=== PATIENT | female | born 1955 | race Caucasian/White ===

== ENCOUNTER 2017-08-30 17:49 | Observation (INO) | payer OTHER ==
[~2017-08-30] VITALS: Ht 160 cm; Wt 80.5 kg
[~2017-08-30 17:49] MED LIST: ALPR.25 PO; CARV12.52 PO; CENTCHW3 PO; CYCL1PAK PO; DICL75 PO; ESTR42.5V PV; METF500 PO; NEXI40CA PO
[2017-08-30 17:50] VITALS: BP 177/81; PULSE 87; RESP 16; TEMP 98.2; O2SAT 97
[2017-08-30 20:48] LABS: AUTOMATED NEUTROPHIL # 3.9 TH/MM3 (1.8-7.7); BASOPHIL # 0.1 TH/MM3 (0-0.2); BASOPHIL % 0.7 % (0.0-2.0); EOSINOPHIL # 0.2 TH/MM3 (0-0.4); EOSINOPHIL % 2.7 % (0.0-4.0); HEMATOCRIT 39.8 % (35.0-46.0); LYMPHOCYTE # 3.3 TH/MM3 (1.0-4.8); MEAN CELL VOLUME 76.4 FL (80.0-100.0); MEAN CORPUSCULAR HGB CONC 32.7 % (32.0-36.0); MEAN PLATELET VOLUME 8.8 FL (7.0-11.0); MONO % 5.5 % (0.0-8.0); MONOCYTE # 0.4 TH/MM3 (0-0.9); NEUT % 49.1 % (16.0-70.0); PLATELET COUNT 255 TH/MM3 (150-450); RED BLOOD COUNT 5.22 MIL/MM3 (4.00-5.30); RED CELL DISTRIBUTION WIDTH 14.9 % (11.6-17.2); WHITE BLOOD COUNT 7.9 TH/MM3 (4.0-11.0)
[2017-08-30 21:09] LABS: INTERNATIONAL NORMALIZED RATIO 0.9 RATIO; PROTHROMBIN TIME - PATIENT 9.6 SEC (9.8-11.6)
[2017-08-30 21:11] LABS: BICARBONATE 25.2 MEQ/L (21.0-32.0); BLOOD UREA NITROGEN 18 MG/DL (7-18); CALCIUM 9.3 MG/DL (8.5-10.1); CHLORIDE 107 MEQ/L (98-107); CREATININE 0.98 MG/DL (0.50-1.00); GLOMERULAR FILTRATION RATE 58 ML/MIN (>89); GLUCOSE,RANDOM 149 MG/DL (74-106); SODIUM (NA) 143 MEQ/L (136-145)
[2017-08-30 21:15] LABS: TROPONIN I LESS THAN 0.02 NG/ML (0.02-0.05)
[2017-08-30 22:32] VITALS: BP 167/76; PULSE 81; RESP 20; O2SAT 98
[2017-08-30] MEDS ORDERED: NEXI40CA PO (22:55)
[2017-08-30] MEDS ORDERED: CARV12.52 PO (22:55)
[2017-08-30] MEDS ORDERED: METF500T PO (22:55)
[2017-08-30] MEDS ORDERED: MOBI7.5T PO (22:55)
[2017-08-30] MEDS ORDERED: LISI2.5T3 PO (22:55)
[2017-08-30] MEDS ORDERED: SIMV20TA PO (22:55)
[2017-08-30] MEDS ORDERED: CYCL7.5T33 (22:55)
[2017-08-30] MEDS ORDERED: IOHEXOL 350 MG/ML 100 ML BTL (for EPS) OTHER ONE (22:58)
--- NOTE | 2017-08-30 22:58 | PD ---
HPI Chief Complaint: Chest Pain Time Seen by Provider: 22:33 Travel History International Travel<30 days: No Contact w/Intl Traveler<30days: No Traveled to known affect area: No History of Present Illness HPI Patient is a 61-year-old female presents emergency department for evaluation of exertional chest tightness radiating down her left arm associate with some nausea vomiting and diaphoresis over the past 2 months. She went to her primary care physician 2 days ago and was told to immediately go to the emergency department for additional workup. She was admitted to [facility] , the patient had an echocardiogram and EKG and was scheduled to have a stress test done today but she did not like the care she was receiving clarifying to me in the attitudes a provider she has had so she decided to leave AGAINST MEDICAL ADVICE she went back to her primary care physician today and was told that she had to go to the hospital immediately for further workup and so she came here. States the pain feels tight in the center of her chest worsens on exertion, intermittent, for the past 2 months. She is high blood pressure hyperlipidemia and diabetes, non-smoker, family history of mother having heart disease and coronary artery disease PFSH Past Medical History Arthritis: Yes Cardiovascular Problems: Yes High Cholesterol: Yes Chest Pain: Yes Diabetes: Yes Patient Takes Glucophage: Yes Gastrointestinal Disorders: Yes GERD: Yes Hypertension: Yes Tetanus Vaccination: Unknown Past Surgical History Gynecologic Surgery: Yes (hysterectomy, tubal ligation, ) Other Surgery: Yes (tumor removed from a finger) Social History Alcohol Use: Yes (occas) Tobacco Use: No Substance Use: No Allergies-Medications (Allergen,Severity, Reaction): Coded Allergies: amoxicillin (Unverified Allergy, Severe, Chest Pain, 08/30/17) clavulanic acid (Unverified Allergy, Severe, Chest Pain, 08/30/17) codeine (Unverified Allergy, Severe, Nausea/Vomiting, 08/30/17) solifenacin (Unverified Allergy, Severe, Itching, 08/30/17) Reported Meds & Prescriptions Reported Meds & Active Scripts Active Reported Flexeril (Cyclobenzaprine HCl) 7.5 Mg Tab 7.5 Mg TID Metformin (Metformin HCl) 500 Mg Tab 1,000 Mg PO BIDPC Simvastatin 20 Mg Tab 20 Mg PO DAILY Mobic (Meloxicam) 7.5 Mg Tab 7.5 Mg PO BID Nexium (Esomeprazole DR) 40 Mg Capdr 40 Mg PO DAILY Lisinopril 2.5 Mg Tab 2.5 Mg PO DAILY Carvedilol 12.5 Mg Tab 12.5 Mg PO BID Review of Systems Except as stated in HPI: all other systems reviewed are Neg Physical Exam Narrative GENERAL: Well-developed well-nourished, no obvious distress SKIN: Focused skin assessment warm/dry. HEAD: Atraumatic. Normocephalic. EYES: Pupils equal and round. No scleral icterus. No injection or drainage. ENT: No nasal bleeding or discharge. Mucous membranes pink and moist. NECK: Trachea midline. No JVD. CARDIOVASCULAR: Regular rate and rhythm. No murmur appreciated. 2+ bilateral equal pulses in all 4 extremities RESPIRATORY: No accessory muscle use. Clear to auscultation. Breath sounds equal bilaterally. GASTROINTESTINAL: Abdomen soft, non-tender, nondistended. Hepatic and splenic margins not palpable. MUSCULOSKELETAL: No obvious deformities. No clubbing. No cyanosis. No edema. NEUROLOGICAL: Awake and alert. No obvious cranial nerve deficits. Motor grossly within normal limits. Normal speech. PSYCHIATRIC: Appropriate mood and affect; insight and judgment normal. Data Data Last Documented VS Vital Signs Date Time Temp Pulse Resp B/P (MAP) Pulse Ox O2 Delivery O2 Flow Rate FiO2 08/30/17 22:32 81 20 167/76 (106) 98 Room Air 08/30/17 17:50 98.2 Orders Orders Electrocardiogram (08/30/17 18:00) Complete Blood Count With Diff (08/30/17 18:00) Basic Metabolic Panel (Bmp) (08/30/17 18:00) Ckmb (Isoenzyme) Profile (08/30/17 18:00) Troponin I (08/30/17 18:00) Prothrombin Time / Inr (Pt) (08/30/17 18:00) Act Partial Throm Time (Ptt) (08/30/17 18:00) Chest, Single Ap (08/30/17 ) Activity Bed Rest With Brp (08/30/17 22:53) Vital Signs (Adult) Q4H (08/30/17 22:53) Cardiac Rhythm .As Directed (08/30/17 22:53) Notify Dr: Other .PRN (08/30/17 22:53) Notify Dr. Parameters (08/30/17 22:53) Resp Oxygen Nasal Cannula (08/30/17 ) Diet Npo (08/31/17 Breakfast) Ckmb (Isoenzyme) Profile (08/30/17 22:53) Ckmb (Isoenzyme) Profile (08/31/17 01:53) Troponin I (08/30/17 22:53) Troponin I (08/31/17 01:53) Electrocardiogram (08/30/17 22:53) Electrocardiogram (08/31/17 01:53) ^ Obtain (08/30/17 22:53) Sodium Chlor 0.9% 1000 Ml Inj (Ns 1000 M (08/30/17 22:53) Sodium Chloride 0.9% Flush (Ns Flush) (08/30/17 23:00) Sodium Chloride 0.9% Flush (Ns Flush) (08/31/17 09:00) Nitroglycerin 2% Oint (Nitroglycerin 2% (08/31/17 00:00) Aspirin Chew (Aspirin Chew) (08/30/17 23:00) Party Plan Sales Host/Hostess / Telemetry [id number] (08/30/17 22:53) Admit Order (Ed Use Only) (08/30/17 ) Labs Laboratory Tests Test 08/30/17 20:10 White Blood Count 7.9 TH/MM3 Red Blood Count 5.22 MIL/MM3 Hemoglobin 13.0 GM/DL Hematocrit 39.8 % Mean Corpuscular Volume 76.4 FL Mean Corpuscular Hemoglobin 25.0 PG Mean Corpuscular Hemoglobin Concent 32.7 % Red Cell Distribution Width 14.9 % Platelet Count 255 TH/MM3 Mean Platelet Volume 8.8 FL Neutrophils (%) (Auto) 49.1 % Lymphocytes (%) (Auto) 42.0 % Monocytes (%) (Auto) 5.5 % Eosinophils (%) (Auto) 2.7 % Basophils (%) (Auto) 0.7 % Neutrophils # (Auto) 3.9 TH/MM3 Lymphocytes # (Auto) 3.3 TH/MM3 Monocytes # (Auto) 0.4 TH/MM3 Eosinophils # (Auto) 0.2 TH/MM3 Basophils # (Auto) 0.1 TH/MM3 CBC Comment DIFF FINAL Differential Comment Prothrombin Time 9.6 SEC Prothromb Time International Ratio 0.9 RATIO Activated Partial Thromboplast Time 25.3 SEC Blood Urea Nitrogen 18 MG/DL Creatinine 0.98 MG/DL Random Glucose 149 MG/DL Calcium Level 9.3 MG/DL Sodium Level 143 MEQ/L Potassium Level 3.9 MEQ/L Chloride Level 107 MEQ/L Carbon Dioxide Level 25.2 MEQ/L Anion Gap 11 MEQ/L Estimat Glomerular Filtration Rate 58 ML/MIN Total Creatine Kinase 65 U/L Troponin I LESS THAN 0.02 NG/ML MDM Medical Decision Making Medical Screen Exam Complete: Yes Emergency Medical Condition: Yes Differential Diagnosis ACS, NV, coronary artery disease, chest wall pain, Narrative Course Patient was room to the emergency department, vital signs stable, only minimal discomfort now, she certainly has concerning signs symptoms and I agree that she needs a stress test a minimum. Will be placed in the chest pain center and defer further testing to the chest pain center staff. Patient was given 162 of aspirin as she is already had 162 prior to arrival. Initial workup with EKG and troponin negative. Her paperwork from outside facility was placed on her chart. Diagnosis Primary Impression: Chest pain Admitting Information Admitting Physician Requests: Observation Condition: Stable Hair Pittman MD Aug 30, 2017 22:58
--- NOTE | 2017-08-30 22:58 | RADRPT ---
EXAM DATE/TIME: 08/30/2017 22:38 [facility] COMPARISON: No previous studies available for comparison. INDICATIONS : High blood pressure, weakness, and chest pain. MEDICAL HISTORY : Hypertension. Gastroesophageal reflux disease. Diverticulitis. Osteoarthritis, Asthma, Diabetes. SURGICAL HISTORY : , Hysterectomy, Lumpectomy, Tubal ligation, Right ankle surgery. ENCOUNTER: Initial ACUITY: 1 month PAIN SCORE: 3/10 LOCATION: Bilateral chest FINDINGS: A single view of the chest demonstrates the lungs to be symmetrically aerated without evidence of mas s, infiltrate or effusion. Heart size is borderline prominent but well compensated. Osseous structur es are intact. CONCLUSION: 1. Heart size is borderline prominent but well compensated. 2. Otherwise negative. Lungs are clear. Lobito Underwood MD on August 30, 2017 at 22:56 Board Certified Radiologist. This report was verified electronically.
[2017-08-30 23:00] VITALS: O2SAT 98
[2017-08-30] MEDS ORDERED: SODIUM CHLORIDE 0.9% FLUSH 10 ML FLUSH IV FLUSH PRN (23:00)
[2017-08-30] MEDS ORDERED: ASPIRIN 81 MG CHEW TAB PO ONE (23:00)
[2017-08-30] MEDS: SODIUM CHLOR 0.9% 1000 ML INJ 1,000 ML IV SCH (23:23)
[2017-08-30] MEDS: NITROGLYCERIN 2% OINT 1 GM PACKET TOP SCH (23:23)
[2017-08-31] VITALS (14 sets, daily range): BP systolic 110–179; BP diastolic 59–86; PULSE 75–89; RESP 17–20; TEMP 97.6–98.5; O2SAT 94–98
[2017-08-31 00:21] LABS: TROPONIN I LESS THAN 0.02 NG/ML (0.02-0.05)
[2017-08-31 03:01] LABS: TROPONIN I LESS THAN 0.02 NG/ML (0.02-0.05)
[2017-08-31] MEDS: NITROGLYCERIN 2% OINT 1 GM PACKET TOP SCH ×4 (05:12→23:34)
[2017-08-31] MEDS ORDERED: GLUCAGON 1 MG/ML VIAL OTHER PRN (08:00)
[2017-08-31] MEDS ORDERED: DEXTROSE 50% IN WATER 50 ML VIAL(D50) IV PUSH PRN (08:00)
[2017-08-31] MEDS: INSULIN ASPART SUPPLEMENTAL SCALE SQ SCH ×4 (08:00→21:00)
[2017-08-31] MEDS: SODIUM CHLORIDE 0.9% FLUSH 10 ML FLUSH IV FLUSH SCH ×2 (08:09→21:00)
[2017-08-31] MEDS: SODIUM CHLOR 0.9% 1000 ML INJ 1,000 ML IV SCH ×2 (08:09→18:58)
[2017-08-31] MEDS ORDERED: PILL SPLITTER OTHER PRN (10:30)
[2017-08-31] MEDS: cloNIDine HCL 0.1 MG TAB PO PRN (11:11)
[2017-08-31] MEDS: CARVEDILOL 12.5 MG TAB PO SCH ×3 (11:11→21:29)
[2017-08-31] MEDS: LISINOPRIL 5 MG TAB PO SCH (11:11)
[2017-08-31] MEDS: PRAVASTATIN SOD 40 MG TAB PO SCH (11:13)
[2017-08-31] MEDS: PANTOPRAZOLE SOD 40 MG DELAYED RELEASE TAB PO SCH (11:13)
--- NOTE | 2017-08-31 11:49 | EKG ---
Date Performed: 08/30/2017 Time Performed: 23:39:34 PTAGE: 61 years EKG: Sinus rhythm VOLTAGE CRITERIA FOR LVH INFERIOR MYOCARDIAL INFARCTION ABNORMAL ECG PREVIOUS TRACING : 08/30/2017 20.04 Since previous tracing, no significant change noted DOCTOR: Javier Arevalo Interpretating Date/Time 08/31/2017 11:49:20
--- NOTE | 2017-08-31 11:49 | EKG ---
Date Performed: 08/31/2017 Time Performed: 02:09:40 PTAGE: 61 years EKG: Sinus rhythm MINIMAL VOLTAGE CRITERIA FOR LVH, CONSIDER NORMAL VARIANT POSSIBLE INFERIOR MYOCARDIAL INFARCTION PUSHPA RDERLINE ECG PREVIOUS TRACING : 08/30/2017 20.04 Since previous tracing, no significant change noted DOCTOR: Javier Arevalo Interpretating Date/Time 08/31/2017 11:48:32
--- NOTE | 2017-08-31 11:55 | EKG ---
Date Performed: 08/30/2017 Time Performed: 20:04:25 PTAGE: 61 years EKG: Sinus rhythm VOLTAGE CRITERIA FOR LVH ABNORMAL ECG Inferior myocardial infarction NO PREVIOUS TRACING DOCTOR: Javier Arevalo Interpretating Date/Time 08/31/2017 11:53:51
--- NOTE | 2017-08-31 12:07 | HHI.HP ---
HPI Primary Care Physician Non-Staff Chief Complaint Chest pain History of Present Illness This is a 61-year-old female that presents to ED via private vehicle with complaint of 2-3 months of intermittent chest discomfort. She believes it occurs mostly with activity. Describes as a pressure. This happened a few times while at rest but mostly occurs with activity. She states she was to the gym and is almost a guarantee that it will occur while she is on the treadmill. It will last 15-30 minutes. Occasionally short of breath. No nausea or diaphoresis. 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 Denies history of CAD. States she had a nuclear ETT a couple years ago with a java security engineer [place]. Voices compliance with her medications for hypertension, hyperlipidemia, and diabetes. Quit smoking 10 years ago. Review of Systems General: Patient denies fevers, chills, and recent travel HEENT: Patient denies headache, sore throat, difficulty swallowing. Cardiovascular: Has the chest discomfort as mentioned above. Denies sensation of heart beating rapidly or irregularly. No syncope. Denies diaphoresis. Respiratory: Occasional shortness of breath. Denies inspirational chest discomfort. Denies coughing wheezing or hemoptysis. GI: Patient denies nausea, vomiting, diarrhea, abdominal pain, bloody stools. Musculoskeletal: Patient denies joint pain or edema. Denies calf pain or edema. Neurovascular: Patient denies numbness, tingling, weakness in extremities. Denies headache. Endocrine: Denies polyuria and polydipsia. Hematologic: Denies easy bruising. Skin: Denies rash or itching. Past Family Social History Allergies: Coded Allergies: amoxicillin (Unverified Allergy, Severe, Chest Pain, 08/30/17) clavulanic acid (Unverified Allergy, Severe, Chest Pain, 08/30/17) codeine (Unverified Allergy, Severe, Nausea/Vomiting, 08/30/17) solifenacin (Unverified Allergy, Severe, Itching, 08/30/17) Past Medical History Hypertension, hyperlipidemia, diabetes. Denies CAD. Past Surgical History , tubal ligation, and hysterectomy. Reported Medications Reported Meds & Active Scripts Active Reported Flexeril (Cyclobenzaprine HCl) 7.5 Mg Tab 7.5 Mg TID Metformin (Metformin HCl) 500 Mg Tab 1,000 Mg PO BIDPC Simvastatin 20 Mg Tab 20 Mg PO DAILY Mobic (Meloxicam) 7.5 Mg Tab 7.5 Mg PO BID Nexium (Esomeprazole DR) 40 Mg Capdr 40 Mg PO DAILY Lisinopril 2.5 Mg Tab 2.5 Mg PO DAILY Carvedilol 12.5 Mg Tab 12.5 Mg PO BID Active Ordered Medications Current Medications Medications (Trade) Dose Ordered Sig/Diane Route Start Time Stop Time Status Last Admin Sodium Chloride 1,000 ml @ 100 mls/hr Q10H IV 08/30/17 22:53 08/31/17 08:09 (NS Flush) 2 ml UNSCH PRN IV FLUSH 08/30/17 23:00 (NS Flush) 2 ml BID IV FLUSH 08/31/17 09:00 08/31/17 08:09 (Nitroglycerin 2% Oint) 0.5 inch Q6HR TOP 08/31/17 00:00 08/30/17 23:23 (D50w (Vial) Inj) 50 ml UNSCH PRN IV PUSH 08/31/17 08:00 (Glucagon Inj) 1 mg UNSCH PRN OTHER 08/31/17 08:00 (NovoLOG SUPPLEMENTAL SCALE) 1 ACHS SLIDING SCALE SQ 08/31/17 08:00 (Coreg) 12.5 mg BID PO 08/31/17 10:30 (Protonix) 40 mg DAILY PO 08/31/17 10:30 08/31/17 11:13 (Prinivil) 2.5 mg DAILY PO 08/31/17 10:30 08/31/17 11:11 (Pravachol) 40 mg DAILY PO 08/31/17 10:30 08/31/17 11:13 (Pill Splitter) 1 ea UNSCH PRN OTHER 08/31/17 10:30 (Catapres) 0.1 mg Q4H PRN PO 08/31/17 10:45 08/31/17 11:11 Family History Her father had CAD onset in his early 50s and at age 59 of a myocardial infarction. Social History Quit smoking 10 years ago but prior to that she smoked about 1 pack of cigarettes daily for 20 years. Rarely has alcohol. Denies illicit drug use. Physical Exam Vital Signs Vital Signs Date Time Temp Pulse Resp B/P (MAP) Pulse Ox O2 Delivery O2 Flow Rate FiO2 08/31/17 08:04 98.2 82 19 179/76 (110) 96 08/31/17 08:00 98.2 82 19 179/76 (110) 96 08/31/17 04:05 98.5 89 18 139/86 (103) 96 08/31/17 04:00 79 08/31/17 01:19 83 08/31/17 00:02 98.5 84 18 143/66 (91) 95 08/30/17 23:44 08/30/17 23:00 98 08/30/17 22:32 81 20 167/76 (106) 98 Room Air 08/30/17 22:32 83 20 97 Room Air 08/30/17 17:50 98.2 87 16 177/81 (113) 97 Physical Exam GENERAL: This is a well-nourished, well-developed patient, in no apparent distress. Patient speaks in clear complete sentences. Patient is pleasant. HEENT: Head is atraumatic and normocephalic. Neck is supple without lymphadenopathy and trachea is midline. No JVD or carotid bruits. CARDIOVASCULAR: Regular rate and rhythm without murmurs, gallops, or rubs. RESPIRATORY: Clear to auscultation. Breath sounds equal bilaterally. No wheezes , rales, or rhonchi. Chest wall is nontender. No use of accessory muscles. GASTROINTESTINAL: Abdomen is nontender, nondistended. Abdomen soft. No obvious pulsatile mass or bruit. No CVA tenderness. Strong femoral pulses bilaterally. Normal bowel sounds in all quadrants. MUSCULOSKELETAL: Patient is moving upper and lower extremities freely. No calf tenderness or edema, no Homans sign. Strong pulses in upper and lower extremities. NEUROLOGICAL: Patient is alert and oriented. Cranial nerves 2-12 are grossly intact. No focal deficits and speech is clear. SKIN: No rash and turgor is normal. Laboratory Laboratory Tests Test 08/30/17 20:10 08/30/17 23:10 08/31/17 02:10 White Blood Count 7.9 Red Blood Count 5.22 Hemoglobin 13.0 Hematocrit 39.8 Mean Corpuscular Volume 76.4 Mean Corpuscular Hemoglobin 25.0 Mean Corpuscular Hemoglobin Concent 32.7 Red Cell Distribution Width 14.9 Platelet Count 255 Mean Platelet Volume 8.8 Neutrophils (%) (Auto) 49.1 Lymphocytes (%) (Auto) 42.0 Monocytes (%) (Auto) 5.5 Eosinophils (%) (Auto) 2.7 Basophils (%) (Auto) 0.7 Neutrophils # (Auto) 3.9 Lymphocytes # (Auto) 3.3 Monocytes # (Auto) 0.4 Eosinophils # (Auto) 0.2 Basophils # (Auto) 0.1 CBC Comment DIFF FINAL Differential Comment Prothrombin Time 9.6 Prothromb Time International Ratio 0.9 Activated Partial Thromboplast Time 25.3 Blood Urea Nitrogen 18 Creatinine 0.98 Random Glucose 149 Calcium Level 9.3 Sodium Level 143 Potassium Level 3.9 Chloride Level 107 Carbon Dioxide Level 25.2 Anion Gap 11 Estimat Glomerular Filtration Rate 58 Total Creatine Kinase 65 63 54 Troponin I LESS THAN 0.02 LESS THAN 0.02 LESS THAN 0.02 Result Diagram: 08/30/17200908/30/172009 Imaging Last 48 hours Impressions Chest X-Ray 08/30/17 0000 Signed Impressions: Service Date/Time: Wednesday, August 30, 2017 22:38 - CONCLUSION: 1. Heart size is borderline prominent but well compensated. 2. Otherwise negative. Lungs are clear. Lobito Underwood MD Course EKGs are sinus rhythm with minor ST-T changes inferiorly. Q-wave in lead III. Caprini VTE Risk Assessment Caprini VTE Risk Assessment: No/Low Risk (score <= 1) Caprini Risk Assessment Model Point Value = 1 Point Value = 2 Point Value = 3 Point Value = 5 Age 41-60 Minor surgery BMI > 25 kg/m2 Swollen legs Varicose veins or History of unexplained or recurrent spontaneous Oral contraceptives or hormone replacement Sepsis (< 1 month) Serious lung disease, including pneumonia (< 1 month) Abnormal pulmonary function Acute myocardial infarction Congestive heart failure (< 1 month) History of inflammatory bowel disease Medical patient at bed rest Age 61-74 Arthroscopic surgery Major open surgery (> 45 min) Laparoscopic surgery (> 45 min) Malignancy Confined to bed (> 72 hours) Immobilizing plaster cast Central venous access Age >= 75 History of VTE Family history of VTE Factor V Leiden Prothrombin [id number] Lupus anticoagulant Anticardiolipin antibodies Elevated serum homocysteine Heparin-induced thrombocytopenia Other congenital or acquired thrombophilia Stroke (< 1 month) Elective arthroplasty Hip, pelvis, or leg fracture Acute spinal cord injury (< 1 month) Prophylaxis Regimen Total Risk Factor Score Risk Level Prophylaxis Regimen 0-1 Low Early ambulation 2 Moderate Order ONE of the following: *Sequential Compression Device (SCD) *Heparin 5000 units SQ BID 3-4 Higher Order ONE of the following medications: *Heparin 5000 units SQ TID *Enoxaparin/Lovenox 40 mg SQ daily (WT < 150 kg, CrCl > 30 mL/min) *Enoxaparin/Lovenox 30 mg SQ daily (WT < 150 kg, CrCl > 10-29 mL/min) *Enoxaparin/Lovenox 30 mg SQ BID (WT < 150 kg, CrCl > 30 mL/min) AND/OR *Sequential Compression Device (SCD) 5 or more Highest Order ONE of the following medications: *Heparin 5000 units SQ TID (Preferred with Epidurals) *Enoxaparin/Lovenox 40 mg SQ daily (WT < 150 kg, CrCl > 30 mL/min) *Enoxaparin/Lovenox 30 mg SQ daily (WT < 150 kg, CrCl > 10-29 mL/min) *Enoxaparin/Lovenox 30 mg SQ BID (WT < 150 kg, CrCl > 30 mL/min) AND *Sequential Compression Device (SCD) Assessment and Plan Assessment and Plan * Chest pain: Patient had serial cardiac enzymes and EKGs were ruling out purposes. She was seen by Dr. Arevalo of cardiology in the chest pain center. She had a Gutierrez protocol ETT reproducing her chest discomforts as well as having ischemic changes correlating to the discomfort. At this time she will be admitted to hospital service with a cardiology consult for further evaluation of her discomfort. * Hypertension: Resume medication. Add amlodipine. * Diabetes: Sliding scale insulin coverage. Follow diabetic diet. Resume medication at discharge. * Hyperlipidemia: Continue current medication. Patient is agreeable to this plan. Keanu Krueger Aug 31, 2017 12:07
--- NOTE | 2017-08-31 12:29 | TR ---
Date Performed: 08/31/2017 Time Performed: 11:38:30 DOCTOR: Javier Arevalo DRUG LIST: CLINICAL HISTORY: REASON FOR TEST: Chest pain REASON FOR ENDING: OBSERVATION: CONCLUSION: ODALYS PROTOCOL. DEVELOPED CHEST TIGHTNESS 2 MINUTES IN FIRST STAGE THAT WORSENED IN THE SECOND STAGE ASSOCIATED WITH INF/LAT ST DEPRESSIONS. CHEST DISCOMFORT RESOLVED 2 1/2 MINUTES INT O RECOVERY.Maximum HP=441 % Max HR Achieved=86.0% Resting HE=895/94 Maximum LF=090/100 Total Exercise Time=3:35 COMMENTS: positive stress test for ischemia.
[2017-08-31] MEDS: amLODIPine BESYLATE 5 MG TAB PO SCH (12:47)
--- NOTE | 2017-08-31 13:31 | MB ---
cc: Yao Posadas MD DATE OF CONSULT: 08/31/2017 REASON FOR CONSULTATION: Abnormal stress test, unstable angina. HISTORY OF PRESENT ILLNESS: The patient is a 61-year-old white female with a history of hypertension, diabetes, and hyperlipidemia, who for the past 2 months has been having intermittent episodes of substernal chest "pressure" associated with shortness of breath without nausea or diaphoresis. The episodes have been occurring at rest, lasting up to 20 minutes. She underwent an exercise treadmill test today in the [facility], which was positive for ischemia. She denies pleurisy, dizziness, syncope, near syncope, pedal edema, and paroxysmal nocturnal dyspnea. Rarely she experiences fleeting fluttering palpitations. PAST MEDICAL HISTORY: 1. Hypertension. 2. Diabetes. 3. Hyperlipidemia. CARDIAC MEDICATIONS AT HOME: 1. Carvedilol 12.5 mg b.i.d. 2. Lisinopril 2.5 mg daily. 3. Simvastatin 20 mg at bedtime. ALLERGIES: AMOXICILLIN, CODEINE, CLAVULANIC ACID, AND SOLIFENACIN. FAMILY HISTORY: The patient's father from a cardiomyopathy. Her mother and brother have mitral valve prolapse. SOCIAL HISTORY: The patient quit smoking about 11 years ago. He denies alcohol abuse. REVIEW OF SYSTEMS: As in the history of present illness, otherwise negative or noncontributory. She also denies melena and dyspepsia. Occasionally, she experiences mild brief headaches. Rarely ,she experiences minimal bright red blood per rectum. PHYSICAL EXAMINATION: VITAL SIGNS: Her blood pressure 179/76 with a pulse of 86, respirations 19. GENERAL: She is a well-developed, well-nourished white female, in no acute distress. NECK: Jugular venous pressure is normal. Carotid pulses are 2+ bilaterally and without bruits. CHEST: Reveals clear lungs sims. CARDIAC: She has a regular rhythm and rate without S3, S4, or murmur. ABDOMEN: She has a soft, nontender abdomen. Bowel sounds are present. There is no definite hepatosplenomegaly. EXTREMITIES: Reveals no clubbing, cyanosis, or edema. DIAGNOSTIC STUDIES: EKG shows sinus rhythm, possible inferior infarct, age undetermined. Voltage criteria for LVH. LABORATORY DATA: Includes normal CBC. Potassium 3.9, BUN 18, creatinine 0.98. Negative cardiac enzymes. IMPRESSION: Symptoms most suggestive of unstable angina in this 61-year-old white female with a history of diabetes, hypertension, and hyperlipidemia. She also had an abnormal exercise treadmill test today in the [facility]. Because of the instability of her symptoms, I would agree with the need for cardiac catheterization with probable percutaneous coronary intervention. The nature of these procedures and potential risks including, but not limited to , myocardial infarction, stroke, arrhythmia, bleeding, infection, and renal failure have been outlined to the patient. She agrees to proceed. RECOMMENDATIONS: 1. Optimize blood pressure control. 2. Cardiac catheterization Saturday. 3. Check a fasting lipid profile. MD ANSON Osorio/TERESE , 01:12 PM , 01:30 PM MTDSal
[2017-08-31] MEDS ORDERED: ACETAMINOPHEN 325 MG TAB PO PRN (22:30)
[2017-09-01] VITALS (10 sets, daily range): BP systolic 108–178; BP diastolic 51–80; PULSE 71–87; RESP 14–18; TEMP 97.8–98.7; O2SAT 92–98
[2017-09-01] MEDS: SODIUM CHLOR 0.9% 1000 ML INJ 1,000 ML IV SCH ×3 (07:00→22:58)
[2017-09-01] MEDS: NITROGLYCERIN 2% OINT 1 GM PACKET TOP SCH ×4 (07:00→22:57)
[2017-09-01] MEDS: INSULIN ASPART SUPPLEMENTAL SCALE SQ SCH ×4 (08:47→23:07)
[2017-09-01] MEDS: PANTOPRAZOLE SOD 40 MG DELAYED RELEASE TAB PO SCH (08:56)
[2017-09-01] MEDS: amLODIPine BESYLATE 5 MG TAB PO SCH (08:56)
[2017-09-01] MEDS: PRAVASTATIN SOD 40 MG TAB PO SCH (08:56)
[2017-09-01] MEDS: CARVEDILOL 12.5 MG TAB PO SCH ×2 (08:56→22:57)
[2017-09-01] MEDS: LISINOPRIL 5 MG TAB PO SCH (08:56)
[2017-09-01] MEDS: SODIUM CHLORIDE 0.9% FLUSH 10 ML FLUSH IV FLUSH SCH ×2 (08:57→22:57)
--- NOTE | 2017-09-01 10:29 | PD.CARD.PN ---
Subjective Subjective Remarks Brief angina last night, none since. No dyspnea, palpitations, dizziness. Objective Medications Item Value Date Time Amlodipine 5 mg 08/31/17 1230 Besylate DAILY/PO 09/01/17 0856 (Norvasc) Carvedilol 12.5 mg 08/31/17 1030 (Coreg) BID/PO 09/01/17 0856 Lisinopril 2.5 mg 08/31/17 1030 (Prinivil) DAILY/PO 09/01/17 0856 Pravastatin Sodium 40 mg 08/31/17 1030 (Pravachol) DAILY/PO 09/01/17 0856 Nitroglycerin 0.5 inch 08/31/17 0000 (Nitroglycerin Q6HR/TOP 09/01/17 0700 2% Oint) Current Medications Medications (Trade) Dose Ordered Sig/Diane Route Start Time Stop Time Status Last Admin Sodium Chloride 1,000 ml @ 100 mls/hr Q10H IV 08/30/17 22:53 09/01/17 07:00 (NS Flush) 2 ml UNSCH PRN IV FLUSH 08/30/17 23:00 (NS Flush) 2 ml BID IV FLUSH 08/31/17 09:00 08/31/17 08:09 (Nitroglycerin 2% Oint) 0.5 inch Q6HR TOP 08/31/17 00:00 09/01/17 07:00 (D50w (Vial) Inj) 50 ml UNSCH PRN IV PUSH 08/31/17 08:00 (Glucagon Inj) 1 mg UNSCH PRN OTHER 08/31/17 08:00 (NovoLOG SUPPLEMENTAL SCALE) 1 ACHS SLIDING SCALE SQ 08/31/17 08:00 (Coreg) 12.5 mg BID PO 08/31/17 10:30 09/01/17 08:56 (Protonix) 40 mg DAILY PO 08/31/17 10:30 09/01/17 08:56 (Prinivil) 2.5 mg DAILY PO 08/31/17 10:30 09/01/17 08:56 (Pravachol) 40 mg DAILY PO 08/31/17 10:30 09/01/17 08:56 (Pill Splitter) 1 ea UNSCH PRN OTHER 08/31/17 10:30 (Catapres) 0.1 mg Q4H PRN PO 08/31/17 10:45 08/31/17 11:11 (Norvasc) 5 mg DAILY PO 08/31/17 12:30 09/01/17 08:56 (Tylenol) 650 mg Q6H PRN PO 08/31/17 22:30 08/31/17 23:34 Vital Signs / I&O Vital Signs Date Time Temp Pulse Resp B/P (MAP) Pulse Ox O2 Delivery O2 Flow Rate FiO2 09/01/17 07:56 97.8 84 16 165/79 (107) 96 09/01/17 04:17 98.7 74 16 117/58 (77) 92 09/01/17 00:15 98.0 81 16 122/56 (78) 94 09/01/17 00:00 75 08/31/17 21:38 98 08/31/17 21:30 75 08/31/17 20:38 97.6 83 17 125/59 (81) 94 08/31/17 20:00 78 08/31/17 18:50 84 08/31/17 16:00 98.4 87 19 110/59 (76) 94 08/31/17 12:22 86 08/31/17 12:00 97.9 78 20 143/83 (103) 94 I/O 08/31/17 08/31/17 08/31/17 09/01/17 09/01/17 09/01/17 07:00 15:00 23:00 07:00 15:00 23:00 Intake Total 480 ml 360 ml Balance 480 ml 360 ml Intake Oral 480 ml 360 ml # Voids 8 5 # Bowel Movements 2 1 1 Physical Exam GENERAL: Well developed, well nourished. No acute distress. HEENT: Jugular venous pressure is normal. CHEST: Lungs clear to auscultation bilaterally. Unlabored respiratory effort. CARDIAC: Regular rate and rhythm without S3, S4, or murmur. ABDOMEN: Soft, nontender, no hepatosplenomegaly. Bowel sounds present. EXTREMITIES: No clubbing, cyanosis, or edema. Assessment and Plan Problem List: (1) Unstable angina ICD Codes: I20.0 - Unstable angina Status: Acute Plan: Stable overnight except brief angina last night. For cath tomorrow. (2) Hypertension ICD Codes: I10 - Essential (primary) hypertension Status: Chronic Plan: BP's overall better. Continue to monitor on multidrug regimen. (3) Hyperlipidemia ICD Codes: E78.5 - Hyperlipidemia, unspecified Status: Chronic Plan: Continue statin therapy. Check lipid profile Code Status full code Discussed Condition With patient Problem Qualifiers (1) Hypertension: Qualified Codes: I10 - Essential (primary) hypertension (2) Hyperlipidemia: Qualified Codes: E78.5 - Hyperlipidemia, unspecified Yao Posadas MD Sep 01, 2017 10:29
[2017-09-01] MEDS ORDERED: DIAZEPAM 10 MG TAB PO SCH (10:30)
[2017-09-01] MEDS ORDERED: diphenhydrAMINE HCL 50 MG CAP PO SCH (10:30)
[2017-09-01] MEDS ORDERED: MIDAZOLAM HCL 2 MG/2 ML VIAL IV PUSH SCH (10:30)
[2017-09-01] MEDS: ASPIRIN EC 325 MG TABEC PO SCH (11:03)
--- NOTE | 2017-09-01 11:51 | HHI.PR ---
Subjective Remarks The patient is in the chair she appears to not acute distress. Says she has some chest pain last night. No chest pain overnight. She was ambulating to the bathroom without any problems no chest pain or shortness of breath no lightheadedness, nausea, diaphoresis. Plan for cardiac cath on Saturday Objective Vitals Vital Signs Date Time Temp Pulse Resp B/P (MAP) Pulse Ox O2 Delivery O2 Flow Rate FiO2 09/01/17 07:56 97.8 84 16 165/79 (107) 96 09/01/17 04:17 98.7 74 16 117/58 (77) 92 09/01/17 00:15 98.0 81 16 122/56 (78) 94 09/01/17 00:00 75 08/31/17 21:38 98 08/31/17 21:30 75 08/31/17 20:38 97.6 83 17 125/59 (81) 94 08/31/17 20:00 78 08/31/17 18:50 84 08/31/17 16:00 98.4 87 19 110/59 (76) 94 08/31/17 12:22 86 08/31/17 12:00 97.9 78 20 143/83 (103) 94 I/O 08/31/17 08/31/17 08/31/17 09/01/17 09/01/17 09/01/17 07:00 15:00 23:00 07:00 15:00 23:00 Intake Total 480 ml 360 ml Balance 480 ml 360 ml Intake Oral 480 ml 360 ml # Voids 8 5 # Bowel Movements 2 1 1 Result Diagram: 08/30/17200908/30/172009 Imaging Last Impressions Chest X-Ray 08/30/17 0000 Signed Impressions: Service Date/Time: Wednesday, August 30, 2017 22:38 - CONCLUSION: 1. Heart size is borderline prominent but well compensated. 2. Otherwise negative. Lungs are clear. Lobito Underwood MD Objective Remarks GENERAL: This is a well-nourished, well-developed patient, in no apparent distress. Patient speaks in clear complete sentences. Patient is pleasant. HEENT: Head is atraumatic and normocephalic. Neck is supple without lymphadenopathy and trachea is midline. No JVD or carotid bruits. CARDIOVASCULAR: Regular rate and rhythm without murmurs, gallops, or rubs. RESPIRATORY: Clear to auscultation. Breath sounds equal bilaterally. No wheezes , rales, or rhonchi. Chest wall is nontender. No use of accessory muscles. GASTROINTESTINAL: Abdomen is nontender, nondistended. Abdomen soft. No obvious pulsatile mass or bruit. No CVA tenderness. Strong femoral pulses bilaterally. Normal bowel sounds in all quadrants. MUSCULOSKELETAL: Patient is moving upper and lower extremities freely. No calf tenderness or edema, no Homans sign. Strong pulses in upper and lower extremities. NEUROLOGICAL: Patient is alert and oriented. Cranial nerves 2-12 are grossly intact. No focal deficits and speech is clear. SKIN: No rash and turgor is normal. A/P Assessment and Plan Chest pain: Patient had serial cardiac enzymes and EKGs were ruling out purposes. She was seen by Dr. Arevalo of cardiology in the chest pain center. She had a Gutierrez protocol ETT reproducing her chest discomforts as well as having ischemic changes correlating to the discomfort. cardiology consulted Seen by Dr Posadas . Plan for cardiac cath on Saturday09/02/18 Hypertension: Resume medication. Add amlodipine. Diabetes: Sliding scale insulin coverage. Follow diabetic diet. Resume medication at discharge. Hyperlipidemia: Continue current medication. Patient is agreeable to this plan. Discussed with the patient, nurse, family at bedside, Dr Posadas Discharge plan : plan for cardiac cath on Saturday Geraldine Miller MD Sep 01, 2017 11:51
[2017-09-01] MEDS: cloNIDine HCL 0.1 MG TAB PO PRN (18:33)
[2017-09-02] MEDS: NITROGLYCERIN 2% OINT 1 GM PACKET TOP SCH (05:00)
[2017-09-02] MEDS: SODIUM CHLOR 0.9% 1000 ML INJ 1,000 ML IV SCH (05:03)
[2017-09-02 07:20] VITALS: BP 151/79; PULSE 76; RESP 16; TEMP 98.2; O2SAT 95
[2017-09-02 08:00] VITALS: PULSE 80
[2017-09-02] MEDS: INSULIN ASPART SUPPLEMENTAL SCALE SQ SCH (08:00)
[2017-09-02] MEDS: CARVEDILOL 12.5 MG TAB PO SCH (09:47)
[2017-09-02] MEDS: ASPIRIN EC 325 MG TABEC PO SCH (09:48)
[2017-09-02] MEDS: LISINOPRIL 5 MG TAB PO SCH (09:48)
[2017-09-02] MEDS: PRAVASTATIN SOD 40 MG TAB PO SCH (09:48)
[2017-09-02] MEDS: PANTOPRAZOLE SOD 40 MG DELAYED RELEASE TAB PO SCH (09:50)
[2017-09-02] MEDS: amLODIPine BESYLATE 5 MG TAB PO SCH (09:53)
[2017-09-02 10:51] VITALS: BP 114/57; PULSE 67; RESP 16; TEMP 98.3
--- NOTE | 2017-09-02 11:25 | HHI.DCPOC ---
Discharge Care Plan Diagnosis: (1) Hypertension (2) Hyperlipidemia (3) Chest pain Your Health Problems Are: Chest Pain Goals to Promote Your Health * To prevent worsening of your condition and complications * To maintain your health at the optimal level Directions to Meet Your Goals Take your medications as prescribed Follow your dietary instruction Follow activity as directed Keep your appointments as scheduled Take your immunizations and boosters as scheduled If your symptoms worsen call your PCP, if no PCP go to Urgent Care Center or Emergency Room Smoking is Dangerous to Your Health. Avoid second hand smoke Call the 24-hour hour crisis hotline for domestic abuse at Cait Romero Sep 02, 2017 11:25
[2017-09-02 11:46] LABS: HEMATOCRIT 38.7 % (35.0-46.0); HEMOGLOBIN 12.8 GM/DL (11.6-15.3); MEAN CELL VOLUME 76.4 FL (80.0-100.0); MEAN CORPUSCULAR HEMOGLOBIN 25.3 PG (27.0-34.0); MEAN CORPUSCULAR HGB CONC 33.1 % (32.0-36.0); MEAN PLATELET VOLUME 8.6 FL (7.0-11.0); PLATELET COUNT 223 TH/MM3 (150-450); RED BLOOD COUNT 5.07 MIL/MM3 (4.00-5.30); RED CELL DISTRIBUTION WIDTH 15.1 % (11.6-17.2); WHITE BLOOD COUNT 5.2 TH/MM3 (4.0-11.0)
[2017-09-02 12:08] LABS: BICARBONATE 25.6 MEQ/L (21.0-32.0); CREATININE 0.48 MG/DL (0.50-1.00)
--- NOTE | 2017-09-02 12:57 | HHI.PR ---
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 No fever or chills. Objective Vitals Vital Signs Date Time Temp Pulse Resp B/P (MAP) Pulse Ox O2 Delivery O2 Flow Rate FiO2 09/02/17 10:51 98.3 67 16 114/57 (76) 09/02/17 07:20 98.2 76 16 151/79 (103) 95 09/01/17 21:49 97.8 79 18 108/51 (70) 96 09/01/17 16:52 97.8 79 16 175/80 (111) 98 09/01/17 16:24 77 09/01/17 13:31 98.0 79 14 178/76 (110) 98 I/O 09/01/17 09/01/17 09/01/17 09/02/17 09/02/17 09/02/17 07:00 15:00 23:00 07:00 15:00 23:00 Intake Total 360 ml 200 ml 2000 ml Balance 360 ml 200 ml 2000 ml Intake Oral 360 ml 200 ml IV Total 2000 ml # Voids 5 # Bowel Movements 1 Result Diagram: 09/02/17 1118 09/02/17 1118 Imaging Last Impressions Chest X-Ray 08/30/17 0000 Signed Impressions: Service Date/Time: Wednesday, August 30, 2017 22:38 - CONCLUSION: 1. Heart size is borderline prominent but well compensated. 2. Otherwise negative. Lungs are clear. Lobito Underwood MD Objective Remarks GENERAL: This is a well-nourished, well-developed patient, in no apparent distress. Patient speaks in clear complete sentences. Patient is pleasant. HEENT: Head is atraumatic and normocephalic. Neck is supple without lymphadenopathy and trachea is midline. No JVD or carotid bruits. CARDIOVASCULAR: Regular rate and rhythm without murmurs, gallops, or rubs. RESPIRATORY: Clear to auscultation. Breath sounds equal bilaterally. No wheezes , rales, or rhonchi. Chest wall is nontender. No use of accessory muscles. GASTROINTESTINAL: Abdomen is nontender, nondistended. Abdomen soft. No obvious pulsatile mass or bruit. No CVA tenderness. Strong femoral pulses bilaterally. Normal bowel sounds in all quadrants. MUSCULOSKELETAL: Patient is moving upper and lower extremities freely. No calf tenderness or edema, no Homans sign. Strong pulses in upper and lower extremities. NEUROLOGICAL: Patient is alert and oriented. Cranial nerves 2-12 are grossly intact. No focal deficits and speech is clear. SKIN: No rash and turgor is normal. A/P Assessment and Plan Chest pain: Patient had serial cardiac enzymes and EKGs were ruling out purposes. She was seen by Dr. Arevalo of cardiology in the chest pain center. She had a Gutierrez protocol ETT reproducing her chest discomforts as well as having ischemic changes correlating to the discomfort. cardiology consulted Seen by Dr Posadas . Plan for cardiac cath on Saturday09/02/18 Hypertension: Resume medication. Add amlodipine. Diabetes: Sliding scale insulin coverage. Follow diabetic diet. Resume medication at discharge. Hyperlipidemia: Continue current medication. Patient is agreeable to this plan. Discussed with the patient, nurse, family at bedside, Dr Posadas Patient went for cardiac cath, she had clean cath here by cardiology for discharge. Medication per medication reconciliation. Discharge plan : plan for cardiac cath on Saturday Geraldine Miller MD Sep 02, 2017 12:57
[2017-09-02] MEDS ORDERED: VERAPAMIL HCL 5 MG/2 ML VIAL ONE (15:47)
[2017-09-02] MEDS ORDERED: MIDAZOLAM HCL 2 MG/2 ML VIAL ONE (15:47)
[2017-09-02] MEDS ORDERED: HEPARIN SODIUM - IV 10,000 UNITS/10 ML VIAL ONE (15:47)
[2017-09-02] MEDS ORDERED: NITROGLYCERIN INJ 5 ML ONE (15:47)
[2017-09-02] MEDS ORDERED: METOPROLOL TARTRATE 5 MG/5 ML VIAL ONE (15:54)
[2017-09-02] MEDS ORDERED: ENALAPRILAT 1.25 MG/ML VIAL ONE (16:21)
[2017-09-02] MEDS ORDERED: MISC INFORMATION XX ONE (16:30)
--- NOTE | 2017-09-02 16:33 | PD.CARD.PN ---
Subjective Subjective Remarks No chest pain, dyspnea, palpitations, dizziness. Objective Vital Signs / I&O Vital Signs Date Time Temp Pulse Resp B/P (MAP) Pulse Ox O2 Delivery O2 Flow Rate FiO2 09/02/17 10:51 98.3 67 16 114/57 (76) 09/02/17 08:00 80 09/02/17 07:20 98.2 76 16 151/79 (103) 95 09/01/17 21:49 97.8 79 18 108/51 (70) 96 09/01/17 16:52 97.8 79 16 175/80 (111) 98 I/O 09/01/17 09/01/17 09/01/17 09/02/17 09/02/17 09/02/17 07:00 15:00 23:00 07:00 15:00 23:00 Intake Total 360 ml 200 ml 2000 ml Balance 360 ml 200 ml 2000 ml Intake Oral 360 ml 200 ml IV Total 2000 ml # Voids 5 # Bowel Movements 1 Physical Exam GENERAL: Well developed, well nourished. No acute distress. HEENT: Jugular venous pressure is normal. CHEST: Lungs clear to auscultation anteriorly. CARDIAC: Regular rate and rhythm without S3, S4, or murmur. ABDOMEN: Soft, nontender, no hepatosplenomegaly. Bowel sounds present. EXTREMITIES: No clubbing, cyanosis, or edema. Laboratory Laboratory Tests Test 09/02/17 11:18 White Blood Count 5.2 TH/MM3 Red Blood Count 5.07 MIL/MM3 Hemoglobin 12.8 GM/DL Hematocrit 38.7 % Mean Corpuscular Volume 76.4 FL Mean Corpuscular Hemoglobin 25.3 PG Mean Corpuscular Hemoglobin Concent 33.1 % Red Cell Distribution Width 15.1 % Platelet Count 223 TH/MM3 Mean Platelet Volume 8.6 FL Blood Urea Nitrogen 10 MG/DL Creatinine 0.48 MG/DL Random Glucose 111 MG/DL Calcium Level 9.0 MG/DL Sodium Level 143 MEQ/L Potassium Level 3.7 MEQ/L Chloride Level 107 MEQ/L Carbon Dioxide Level 25.6 MEQ/L Anion Gap 10 MEQ/L Estimat Glomerular Filtration Rate 132 ML/MIN Assessment and Plan Problem List: (1) Unstable angina ICD Codes: I20.0 - Unstable angina Status: Acute Plan: Only mild CAD seen on cath today. Rec retirement lipid lowering therapy, HTN control. OK to discharge home from my standpoint. (2) Hypertension ICD Codes: I10 - Essential (primary) hypertension Status: Chronic Plan: BP's fluctuating, overall better. Continue to monitor on multidrug regimen as outpatient by her PCP. (3) Hyperlipidemia ICD Codes: E78.5 - Hyperlipidemia, unspecified Status: Chronic Plan: Continue statin therapy. Check lipid profile as outpatient. Code Status full code Discussed Condition With patient's Problem Qualifiers (1) Hypertension: Qualified Codes: I10 - Essential (primary) hypertension (2) Hyperlipidemia: Qualified Codes: E78.5 - Hyperlipidemia, unspecified Yao Posadas MD Sep 02, 2017 16:33
--- NOTE | 2017-09-02 16:34 | CATHPROC ---
[facility] HIS Report Study Information Study Number Admission Scheduled Start Study Start [id number] Aug 30 2017 10:57PM 09/01/2017 Sep 02 2017 3:37PM [place] [facility] Cardiac Catheterization Admit Source Facility Department Emergency department [facility] - Weight Calculator Physician and Clinical Staff Initial Yao Osborne Ink Maker Vera Razo RN Recorder Alicia Austin,RT(R) Scrub Jennifer Juan,RT(R) Procedures Performed Procedure Location (Site) Vessel Name Coronary Angiograms LCA Left Coronary Coronary Angiograms RCA Right Coronary L Heart Cath LV Gram-hand inj. LV LV Ventricle Wire insertion Radial (right) Radial Art. Equipment Time Template Worker Description Size Mfg Part Number Used/Scraped TRANSDUCER, TRUWAVE [id number] 15:51 OWUSU LIGHT * Used W/STOCKCOCK *[id number] *[id number] *[id number] 15:51 MALLINCKRODT SYRINGE, ANGIOMAT 150ML 150ML *[id number] Used [address] [place] [address] CONCEPT DRAPE, RADIAL FEMORAL FULL 15:51 * [id number] *[id number] Used DEVELOPMENT BODY [id number] 15:51 6[employer] PACK, CCL CUSTOM * Used *[id number] 15:51 6[employer] SUPPORT, ARTERIAL ADULT [id number] *[id number] Used [id number] 15:51 Kiosked PACER PEN, SKIN DUAL W/ RULER * Used *[id number] 16:06 [employer] JL 3.5 DXTERITY CATHETER FR 5 Used *[id number] BAND, RADIAL COMPRESSION TR [id number] 16:22 [employer] MEDICAL 24CM Used SHORT 24 *[id number] SHEATH, FR6 RADIAL PRELUDE 15:51 [employer] MEDICAL FR 6 [id number] Used EASE 11CM [id number] 15:51 [employer] WIRE, EXCHANGE 260CM 3MMJ 260CM Used *[id number] 15:51 NAMIC MANIFOLD, 4 PORT * Used *[id number] 16:16 NAMIC TUBING, HIGH PRESSURE 48" 48" Used *[id number] 15:51 [employer]COMED OMNIPAQUE, 350 MG, 150ML 150ML [id number] Used 16:17 NYCOMED OMNIPAQUE, 350 MG, 50ML 50ML [id number] Used [id number] 15:51 [employer] BLANKET,WARM AIR CCL * Used *[id number] CATHETER, FR5 OPTITORQUE [id number] 16:02 ffk environment FR 5 Used RADIAL TIG 4.0 *[id number] History: Current Medications Medication Dosage/Unit Route Frequency Last Date/Time Taken CARVEDILOL Statins (any) History: Allergies Allergy Reaction codeine Nausea/Vomiting clavulanic acid Chest Pain amoxicillin Chest Pain solifenacin Itching History: Risk Factors Family History of Hypertension Dyslipidemia Previous NV Previous Heart Failure Premature CAD Yes Yes Yes No No Prior Valve Prior PCI Prior CABG Surgery No No No Cerebrovascular Peripheral Artery Chronic Lung On Dialysis Diabetes Disease Disease Disease No No No No No History: Symptoms/Diagnosis Selection Items Chest pain History: Stress Tests Stress or Imaging Studies Performed Yes Standard Exercise Stress Stress Test Result Test Yes Positive Stress Echo No Stress Test SPECT No Stress Test CMR No Cardiac CTA Coronary Calcium Score No No History: Other Current Smoker Method Quit Packs a Day Years Used Pack Years No Cigarettes 12 Years Ago 1 20 20 Labs Hgb (g/dl) Hct (%) WBC (l/cumm) Platelets (thousands) 11.60-17.00 35.00-51.00 4.00-11.00 150.00-450.00 12.0 38 5 223 Glucose (mg/dl) BUN (mg/dl) Creatinine (mg/dl) BUN:Creatinine (1:x) 74.00-106.00 7.00-18.00 0.50-1.30 10.00-20.00 111 10 0.4 25 Na (meq/l) K (meq/l) 136.00-145.00 3.50-5.10 143 3.7 INR (PTT:PT) 0.90-1.10 0.9 CPK-MB (ng/ML) 0.50-3.60 Not Drawn Medication Medication Total Dose (Bolus/Oral) Medication Total Dosage/Unit 1% XYLOCAINE 20 mL FENTANYL 100 mcg LOPRESSOR 5 mg OXYGEN 3 l/min RADIAL COCKTAIL 5 mL (Bolus) VASOTEC 1.25 mg VERAPAMIL 1.25 mg VERSED 2 mg Medications (Bolus/Oral) Medication Time Given Dosage/Unit Administered By Reason 1% XYLOCAINE 09/02/2017 3:58:06 PM 20 mL Yao Posadas 20 mL 1% XYLOCAINE given in lab by Yao Posadas in Right Radial via Subcutaneous. VERSED 09/02/2017 3:58:14 PM 2 mg Mrache, Vera 2 mg VERSED given in lab by Vera Razo RN in Right Antecubital via Peripheral IV. Ordered by Yao Ellsworth. LOPRESSOR 09/02/2017 3:58:51 PM 5 mg Mrache, Vera 5 mg LOPRESSOR given in lab by Vera Razo RN in Right Antecubital via Peripheral IV. Ordered b Yao Jolly. FENTANYL 09/02/2017 4:00:12 PM 50 mcg Mrache, Vera 50 mcg FENTANYL given in lab by Vera Razo RN in Right Antecubital via Peripheral IV. Ordered by Yao Posadas. Ntg 200mcg Verapamil 2.5mg Heparin RADIAL COCKTAIL 09/02/2017 4:00:14 PM 5 mL (Bolus) Yao Posadas 2500U 5 mL (Bolus) RADIAL COCKTAIL given in lab by Yao Posadas in Right Radial via Radial. Using [Solution Name]. Reason: Ntg 200mcg Verapamil 2.5mg Heparin 2500U. OXYGEN 09/02/2017 4:09:49 PM 3 l/min Shantal Razot 3 l/min OXYGEN given in lab by Vera Razo RN via Nasal. Ordered by Yao Posadas. VASOTEC 09/02/2017 4:22:36 PM 1.25 mg Mrakarime, Vera 1.25 mg VASOTEC given in lab by Vera Razo RN in Right Antecubital via Peripheral IV. Ordered by Yao Posadas. FENTANYL 09/02/2017 4:24:35 PM 50 mcg Mrache, Vera 50 mcg FENTANYL given in lab by Vera Razo RN in Right Antecubital via Peripheral IV. Ordered by Yao Posadas. VERAPAMIL 09/02/2017 4:27:38 PM 1.25 mg Mrache, Vera 1.25 mg VERAPAMIL given in lab by Vera Razo RN in Right Antecubital via Peripheral IV. Ordere d by Yao Posadas. Medication (Drip) Medication Time Given Dosage/Unit Concentration/Unit Diluent (ml) Solution IV Solutions 09/02/2017 3:37:42 PM 50 mL (IV) NaCl .9 IV Solutions given in lab by Vera Razo RN in Right Antecubital via Peripheral IV. Pump/Drip F low using NaCl .9. Initial Case Assessment Cardiovascular HR Rhythm NIBP Chest Pain 85 SR 204/101 0 Edema Present Skin color Skin Mild Normal Warm Dry Circulatory - Right Pulses Dorsalis Pedis Femoral Radial 1 2 2 Scale (0,1,2,3,4,d) Scale (0,1,2,3,4,d) Neurological State Oriented to time-place- Alert Moves all extremities person Respiration - General Respiration Rate SpO2 (%) (B/min) 20 97 Chronological Log Time Study Chronological Log 15:36:14 Patient arrived via Bed. 15:37:18 Patient Name, D.O.B, / Armband Verified By R.N. 15:37:18 Consent signed by the physician and the patient and verified by the Weight Calculator staff. 15:37:19 Pre-op and post- op instructions given; patient acknowledges understanding of instruction s. 15:37:19 Verbal Stimulation=2 Physical Stimulation=2 Airway=2 Respiration=2 TOTAL=8. (0=absent, 1= limited, 2=present) 15:37:21 Presedation assessment performed by Weight Calculator RN. 15:37:23 Allens test performed on the right radial and ulnar artery. 15:37:27 Patient has been NPO for More than 6Hrs. 15:37:32 Skin Breakdown- none per pt 15:37:33 Patient Warmer Placed on the Table. 15:37:38 Kiley Prominences Protected 15:37:39 A # 20 IV was noted in the Antecubital (right). Grade = 0 15:37:42 IV Solutions given in lab by Vera Razo, BONIFACIO in Right Antecubital via Peripheral IV. Pump/Drip Flow using NaCl .9. 15:37:43 History and physical on the chart or being dictated. Assessment: Initial Case, HR=85 BPM, Rhythm=SR, IHWG=344/101 mmhg, Chest Pain=0, Edema=Mild, Color=Normal, Skin = Warm, Dry 15:37:44 Right Pulses: Eduardo Ped=1, Femoral=2, Radial=2 Neurological: State=Alert, Ox3, JOAQUIN Respiration: Resp=20 B/min, SpO2=97 % Vitals capture started with the following parameters, Patient=Adult, Interval=5 min, Initial Pr bhyhym=837 mmHg, 15:45:01 Deflation Rate=5 mmHg, Cuff placed on Right Arm 15:46:03 HR=85 bpm, HNSQ=893/97 mmhg, SpO2=95.0 %, Resp=23 B/min 15:50:46 HR=84 bpm, QQGK=603/101 mmhg, SpO2=95.0 %, Resp=20 B/min 15:51:46 Reference ECG taken 15:53:28 Right Radial and right groin prepped with 2% chlorhexidine, and draped after a 3 min. waiti ng time. 15:53:34 MD arrived. 15:55:43 HR=83 bpm, RZRY=813/100 mmhg, SpO2=95.0 %, Resp=23 B/min Time Out. Correct patient, correct procedure, correct physician, power injector not loaded with contrast with surgical 15:57:44 team present. Time Out Concurred by MD and individual staff in procedure. 15:58:02 Case Start 15:58:06 20 mL 1% XYLOCAINE given in lab by Yao Posadas in Right Radial via Subcutaneous. 15:58:14 2 mg VERSED given in lab by Vera Razo, BONIFACIO in Right Antecubital via Peripheral IV. Or dered by Yao Posadas. 15:58:51 5 mg LOPRESSOR given in lab by Vera Razo, RN in Right Antecubital via Peripheral IV. Ordered by Yao Posadas. 15:59:26 Access site was right Radial Artery. A SHEATH, FR6 RADIAL PRELUDE EASE 11CM FR 6 was advanced into the Radial (right) using the Perc utaneous 15:59:37 technique. 50 mcg FENTANYL given in lab by Vera Razo, RN in Right Antecubital via Peripheral IV. Or dered by Katharina 16:00:12 Yao. 5 mL (Bolus) RADIAL COCKTAIL given in lab by Yao Posadas in Right Radial via Radial. Using [So lution Name]. Reason: 16:00:14 Ntg 200mcg Verapamil 2.5mg Heparin 2500U. 16:00:46 HR=92 bpm, KBFX=399/102 mmhg, SpO2=95.0 %, Resp=23 B/min A CATHETER, FR5 OPTITORQUE RADIAL TIG 4.0 FR 5 was advanced over a wire. OMNIPAQUE, 350 MG, 150 ML 150ML 16:01:45 was used for injections. 16:03:10 Pressure channel 1 zeroed. 16:03:36 The RCA was injected and visualized at various angles. OMNIPAQUE, 350 MG, 150ML 150ML used . Recorded Pressure: Ao, HR=79, Condition=Condition 1 16:03:44 (Aorta) Ao 152/83/112 After removing the current catheter a JL 3.5 DXTERITY CATHETER FR 5 was advanced over a WIRE, E XCHANGE 260CM 16:05:34 3MMJ 260CM. 16:05:47 HR=76 bpm, ZACX=636/82 mmhg, SpO2=88 %, Resp=19 B/min 16:08:05 A WIRE, EXCHANGE 260CM 3MMJ 260CM was inserted via Radial (right). After removing the current catheter a AL 1 INFINITI CATHETER FR 6 was advanced over a WIRE, EXC HANGE 260CM 16:09:06 3MMJ 260CM. 16:09:49 3 l/min OXYGEN given in lab by Vera Razo, BONIFACIO via Nasal. Ordered by Yao Posadas. 16:10:40 HR=76 bpm, VEBV=902/77 mmhg, SpO2=97.0 %, Resp=19 B/min 16:12:53 The LCA was injected and visualized at various angles. OMNIPAQUE, 350 MG, 150ML 150ML used . After removing the current catheter a PIGTAIL STR INFINITI CATHETER FR 6 was advanced over a WI RE, EXCHANGE 16:15:05 260CM 3MMJ 260CM. 16:15:21 Vera loaded the injector. 16:15:41 HR=77 bpm, LRUU=805/91 mmhg, SpO2=98.0 %, Resp=19 B/min Recorded Pressure: LV, HR=79, Condition=Condition 1 16:16:17 (Left Ventricle) LV 172/13/30 16:19:40 The LV was manually injected with 10 cc's and visualized. OMNIPAQUE, 350 MG, 150ML 150ML us ed. Recorded Pressure: LV, Ao, HR=74, Condition=Condition 1 16:20:03 (Left Ventricle) LV 169/15/25, (Aorta) Ao 167/81/116 16:20:31 Catheter was removed 16:20:40 Case End 16:20:44 HR=77 bpm, WOIB=524/85 mmhg, SpO2=99.0 %, Resp=19 B/min 1.25 mg VASOTEC given in lab by Vera Razo, BONIFACIO in Right Antecubital via Peripheral IV. O rdered by Katharina, 16:22:36 Yao. 50 mcg FENTANYL given in lab by Vera Razo, BONIFACIO in Right Antecubital via Peripheral IV. O rdered by Katharina, 16:24:35 Yao. 16:25:45 HR=72 bpm, DLAG=995/84 mmhg, QrV4=448.0 %, Resp=14 B/min Radial Compression Device Used. 16 mLs of air placed in BAND, RADIAL COMPRESSION TR SHORT 24 2 4CM. Affected 16:25:51 hand 99 % O2 saturation. 1.25 mg VERAPAMIL given in lab by Vera Razo, BONIFACIO in Right Antecubital via Peripheral IV. Ordered by Katharina, 16:27:38 Yao. 16:30:44 HR=71 bpm, WFCS=483/92 mmhg, SpO2=99.0 %, Resp=16 B/min 16:32:21 Vitals capture stopped. 16:33:22 No case complications noted. 16:33:24 Holding Area notified. 16:33:33 A Left Heart Cath was performed. 16:33:34 Patient moved to [facility] End Study - Contrast Media Used In Study Contrast Total Opened (mL) Total Used (mL) Total Wasted (mL) Omnipaque 100 100 0 End Study - Maximum Contrast Load Max Contrast Load (mL) 1006.3 End Study - Radiation Exposure Fluoro Time (minutes) 6.8 End Study - Patient Disposition Complications Transferred To Interventional Outcome No Telemetry Bed No attempt made
[2017-09-02] MEDS ORDERED: AMLO5 PO (17:04)
[2017-09-02] MEDS ORDERED: ASPI325T33 PO (17:10)
--- NOTE | 2017-09-02 17:20 | HHI.DS ---
Discharge Summary Admission Date Aug 30, 2017 at 22:57 Discharge Date: Sep 02, 2017 Admitting Diagnosis Chest Pain (1) Unstable angina ICD Code: I20.0 - Unstable angina Status: Acute (2) Chest pain ICD Code: R07.9 - Chest pain, unspecified Status: Acute (3) Hyperlipidemia ICD Code: E78.5 - Hyperlipidemia, unspecified Status: Chronic (4) Hypertension ICD Code: I10 - Essential (primary) hypertension Status: Chronic Procedures None Brief History - From Admission This is a 61-year-old female that presents to ED via private vehicle with complaint of 2-3 months of intermittent chest discomfort. She believes it occurs mostly with activity. Describes as a pressure. This happened a few times while at rest but mostly occurs with activity. She states she was to the gym and is almost a guarantee that it will occur while she is on the treadmill. It will last 15-30 minutes. Occasionally short of breath. No nausea or diaphoresis. 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 Denies history of CAD. States she had a nuclear ETT a couple years ago [place] Voices compliance with her medications for hypertension, hyperlipidemia, and diabetes. Quit smoking 10 years ago. CBC/BMP: 09/02/17 1118 09/02/17 1118 Significant Findings Laboratory Tests Test 08/30/17 20:10 08/30/17 23:10 08/31/17 02:10 09/02/17 11:18 Mean Corpuscular Volume 76.4 FL (80.0-100.0) 76.4 FL (80.0-100.0) Mean Corpuscular Hemoglobin 25.0 PG (27.0-34.0) 25.3 PG (27.0-34.0) Prothrombin Time 9.6 SEC (9.8-11.6) Random Glucose 149 MG/DL (74-106) 111 MG/DL (74-106) Estimat Glomerular Filtration Rate 58 ML/MIN (>89) Troponin I LESS THAN 0.02 NG/ML LESS THAN 0.02 NG/ML LESS THAN 0.02 NG/ML Creatinine 0.48 MG/DL (0.50-1.00) Imaging Last Impressions Chest X-Ray 08/30/17 0000 Signed Impressions: Service Date/Time: Wednesday, August 30, 2017 22:38 - CONCLUSION: 1. Heart size is borderline prominent but well compensated. 2. Otherwise negative. Lungs are clear. Lobito Underwood MD PE at Discharge GENERAL: This is a well-nourished, well-developed patient, in no apparent distress. Patient speaks in clear complete sentences. Patient is pleasant. HEENT: Head is atraumatic and normocephalic. Neck is supple without lymphadenopathy and trachea is midline. No JVD or carotid bruits. CARDIOVASCULAR: Regular rate and rhythm without murmurs, gallops, or rubs. RESPIRATORY: Clear to auscultation. Breath sounds equal bilaterally. No wheezes , rales, or rhonchi. Chest wall is nontender. No use of accessory muscles. GASTROINTESTINAL: Abdomen is nontender, nondistended. Abdomen soft. No obvious pulsatile mass or bruit. No CVA tenderness. Strong femoral pulses bilaterally. Normal bowel sounds in all quadrants. MUSCULOSKELETAL: Patient is moving upper and lower extremities freely. No calf tenderness or edema, no Homans sign. Strong pulses in upper and lower extremities. NEUROLOGICAL: Patient is alert and oriented. Cranial nerves 2-12 are grossly intact. No focal deficits and speech is clear. SKIN: No rash and turgor is normal. Hospital Course Chest pain: Patient had serial cardiac enzymes and EKGs were ruling out purposes. She was seen by Dr. Arevalo of cardiology in the chest pain center. She had a Gutierrez protocol ETT reproducing her chest discomforts as well as having ischemic changes correlating to the discomfort. cardiology consulted Seen by Dr Posadas . Status post cardiac cath on Saturday09/02/18. Patient with clean cath, cleared for discharge by cardiology. Hypertension: Resume medication. Add amlodipine. Diabetes: Sliding scale insulin coverage. Follow diabetic diet. Resume medication at discharge. Hyperlipidemia: Continue current medication. Patient is agreeable to this plan. Discussed with the patient, nurse, family at bedside, Dr Posadas Patient went for cardiac cath, she had clean cath here by cardiology for discharge. Medication per medication reconciliation. Pt Condition on Discharge: Stable Discharge Disposition: Discharge Home Discharge Time: > 30 minutes Discharge Instructions DIET: Follow Instructions for: Heart Healthy Diet, Diabetic Diet Activities you can perform: Regular-No Restrictions Activities to Avoid: Driving for 24 hrs Follow up Referrals: Cardiology - 1 Week PCP Follow-up - 2-3 Days New Medications: Amlodipine (Norvasc) 5 Mg Tab 5 MG PO DAILY for Blood Pressure Management, #[address] (Aspirin EC) 325 Mg Tabdr 81 MG PO DAILY for Blood Clot Prevention, #30 TAB Continued Medications: Carvedilol (Carvedilol) 12.5 Mg Tab 12.5 MG PO BID, #60 TAB 0 Refills Cyclobenzaprine (Flexeril) 7.5 Mg Tab 7.5 MG TID for Muscle Spasm, #90 TAB [address] (Nexium) 40 Mg Capdr 40 MG PO DAILY, CAP 0 Refills Lisinopril (Lisinopril) 2.5 Mg Tab 2.5 MG PO DAILY, #30 TAB 0 Refills Metformin (Metformin) 500 Mg Tab 1000 MG PO BIDPC for Blood Sugar Management, #60 TAB 0 Refills Simvastatin (Simvastatin) 20 Mg Tab 20 MG PO DAILY for Cholesterol Management, #30 TAB 0 Refills Discontinued Medications: Meloxicam (Mobic) 7.5 Mg Tab 7.5 MG PO BID for Pain, TAB 0 Refills Geraldine Miller MD Sep 02, 2017 17:20
--- NOTE | 2017-09-02 18:29 | MA ---
cc: Yao Posadas MD PROCEDURE: Left heart catheterization, selective coronary angiography, left ventriculography. PROCEDURE NOTE: The patient was brought to the cardiac catheterization laboratory in a fasting state after having signed informed consent. The right radial region was prepped and draped as per policy and anesthetized with 1% lidocaine. Arterial access was obtained via the right radial artery and a 6 [place] sheath placed. Coronary arteriography was performed using a [place] catheter to engage the right coronary and an Amplatz left 1.0 to engage the left main. Left ventriculography was done using a standard 6 [place] pigtail. There were no apparent immediate complications. A radial artery compression band was applied to her right wrist at the end of the case to achieve good hemostasis. HEMODYNAMIC DATA: Left ventricle 169 with an end diastolic pressure of 15, aorta 167/81 with a mean of 116. There was no significant transvalvular aortic gradient on pullback of the pigtail catheter. CORONARY ARTERIOGRAPHY: The left main is normal. The left anterior descending is a relatively small vessel giving rise to multiple small diagonals, which are all free of disease. In the proximal LAD, there are minimal luminal irregularities. In the mid LAD, there is somewhat eccentric up to 15% stenosis. The distal LAD is very small in caliber and free of disease. The left circumflex is a medium-sized vessel giving rise to a fairly large obtuse marginal. The obtuse marginal has 30% stenosis at its origin. The proximal to mid left circumflex has minimal luminal irregularities. The right coronary artery is a large dominant vessel without up to 15% proximal stenosis. LEFT VENTRICULOGRAPHY: Contrast injection of the left ventricle was done with a hand injection as the injector was malfunctioning. Left ventriculography is somewhat suboptimal. There appears to be no segmental wall motion abnormalities. Ejection fraction is estimated at 60%. CONCLUSIONS: 1. Mild 3-vessel coronary artery disease. 2. Normal left ventricular function with estimated ejection fraction of 60%. MD ANSON Osorio/DEYANIRA , 04:26 PM , 06:27 PM [facility]
== END 2017-09-02 19:50 | disposition home or self-care (01) ==
LOC: NEPE 17:49 → NEDA 22:57 → NEPGCP 23:49 → UNDODISOB 09-02 15:25 → N07B 09-02 17:30
PROVIDERS: ADMIT Hospitalist; ATTEND Hospitalist
DX: I25.110 Atherosclerotic heart disease of native coronary artery with unstable angina pectoris (principal); I10 Essential (primary) hypertension; E78.5 Hyperlipidemia, unspecified; R11.2 Nausea with vomiting, unspecified; R94.39 Abnormal result of other cardiovascular function study; R06.02 Shortness of breath; R61 Generalized hyperhidrosis; E11.9 Type 2 diabetes mellitus without complications; E78.00 Pure hypercholesterolemia, unspecified; K21.9 Gastro-esophageal reflux disease without esophagitis; Z82.49 Family history of ischemic heart disease and other diseases of the circulatory system; Z87.891 Personal history of nicotine dependence
CPT/HCPCS: 71045; 80048; 82550; 82948; 84484; 85025; 85027; 85610; 85730; 93005; 93017; 93458; 96360; 96361; 96372; 99152; 99153; 99285; C1769; C1893; G0378; J1644; J1815; J2250; J3010; J7030; Q9967